=== PATIENT | male | born 1960 | race Caucasian/White ===

== ENCOUNTER 2017-08-21 21:08 | Emergency (ER) | payer OTHER ==
[2017-08-21 21:38] VITALS: BP 155/94
[2017-08-21] MEDS ORDERED: predniSONE TAB* 20 MG PO ONE (22:06)
[2017-08-21] MEDS ORDERED: Cyclobenzaprine TAB* 10 MG PO ONE (22:06)
--- NOTE | 2017-08-21 22:06 | UC ---
Neck Pain HPI - HPI Summary HPI Summary: Pt presents with SO. pt with progressive paresthesia and discomfort left arm from lateral neck to shoulder and ring finger and pinkie. no trauma. Pt denies weakness. Pt has seen his PCP and was were referred to [facility] - concern for cervical nerve radiculopathy. Pt states has been waiting for insurance approval which came today and was anticipating call today to schedule f/u. Pt states tonight paresthesia got worse. Slight discomfort with lateral rotation of neck. Pt difficult to find comfortable position. no change is pattern, just intensity. Pt took Motrin 1200mg without improvement so came to UC> Pt's medications reviewed this visit - History of Current Complaint Chief Complaint: UCGeneralIllness Stated Complaint: LFT WRIST/ELBOW/SHOULDER PAIN Time Seen by Provider: 08/21/17 21:36 Hx Obtained From: Patient, Family/Information Technology Administrator Onset/Duration Of Injury/Symptoms: Hours Timing: Constant Onset/Duration: Gradual Onset, Lasting Weeks Severity: Moderate Pain Intensity: 7 Pain Scale Used: 0-10 Numeric Location: Discrete At: - lef UE, Radiates To: - left thumb, index Aggravating Factors: Movement - c spine movement - Allergies/Home Medications Allergies/Adverse Reactions: Allergies Allergy/AdvReac Type Severity Reaction Status Date / Time hydrochlorothiazide Allergy Rash Verified 08/21/17 21:28 Home Medications: Home Medications Amlodipine Besylate [Norvasc 2.5 mg tab] 1 tab DAILY 08/21/17 [History Confirmed 08/21/17] Atorvastatin* [Lipitor 20 MG*] 20 mg QPM 08/21/17 [History Confirmed 08/21/17] Fluticasone-Salmeterol 250-50* [Advair Diskus 250-50*] 1 puff BID 08/21/17 [ History Confirmed 08/21/17] Losartan Potassium 100 mg DAILY 08/21/17 [History Confirmed 08/21/17] Tiotropium CAP.INH* [Spiriva CAP.INH*] 1 inh DAILY 08/21/17 [History Confirmed 08/21/17] celeCOXIB CAP* [CeleBREX CAP*] 200 mg PO EVERY OTHER DAY 08/21/17 [History Confirmed 08/21/17] PMH/Surg Hx/FS Hx/Imm Hx Previously Healthy: Yes - Surgical History Surgical History: Yes Surgery Procedure, Year, and Place: Umbilical hernia. Tonsils lumbar back injections - Family History Known Family History: Positive: Hypertension - Social History Occupation: Unemployed Lives: With Family Alcohol Use: Weekly Substance Use Type: None Smoking Status (MU): Never Smoked Tobacco Review Of Systems Constitutional: Positive: Negative Skin: Positive: Negative Neurological: Positive: Paresthesia All Other Systems Reviewed And Are Negative: Yes Physical Exam Triage Information Reviewed: Yes Appearance: Well-Appearing, Well-Nourished, Pain Distress - pt intermittently shaking arm for comfort Vital Signs: Initial Vital Signs Temp 98 F 08/21/17 21:31 Pulse 75 08/21/17 21:31 Resp 18 08/21/17 21:31 BP 155/94 08/21/17 21:31 Pulse Ox 97 08/21/17 21:31 Eye Exam: Normal Eyes: Positive: Conjunctiva Clear ENT Exam: Normal ENT: Positive: Normal ENT inspection, Hearing grossly normal, TMs normal Dental Exam: Normal Neck exam: Normal Neck: Positive: Supple, Nontender, No Lymphadenopathy Respiratory Exam: Normal Respiratory: Positive: Lungs clear, Normal breath sounds, No respiratory distress, No accessory muscle use Cardiovascular Exam: Normal Cardiovascular: Positive: RRR, No Murmur, Other: - 2+ radial, , ulnar CBT < 2 sec Musculoskeletal Exam: Normal Musculoskeletal: Positive: Strength Intact, Other: - 5/5 extension, abudcition, adduction left shoulder 5/5 flex/ext elbow, pronate/supinate 5/5 flex/ext wrist no pain c/t/l/s + full AROM c spine with increased paresthesi lateral rotation right Neurological Exam: Normal Neurological: Positive: Other: - + thumb up, a ok, finger spread, finger cross 5/5 grasp 2+ bicep without clonus Psychological Exam: Normal Skin Exam: Normal Skin: Negative: rashes Neck Pain Course/Dx - Course Course Of Treatment: Pt with left sided paresthesiea lateral neck to anterior shoulder and medial aspect of arm to fingers. . Pt with full strength on exam. Pt agree with likely cervical nerve radiculopathy. recommend sling. heat with stretch. motrin/apap - d/w pt at length appropriate doses. flexeril. pred - expressed precaution with NSAID. f/u with pcp and [facility] in am. no narcotic. pt comfortable and in agreement with plan - Differential Dx/Diagnosis Provider Diagnoses: upper extremity radiculopathy Discharge - Discharge Plan Condition: Stable Disposition: HOME Prescriptions: Cyclobenzaprine TAB* [Flexeril 10 MG TAB*] 10 mg PO TID PRN #15 tab PRN Reason: Spasms predniSONE TAB* [Deltasone TAB*] 20 mg PO DAILY #13 tab Referrals: Erin Laura MD [Primary Care Provider] - Additional Instructions: - Call [facility] tomorrow as well as Dr. Marcum to secure a follow-up appointment - wear sling for comfort and support - take prednisone daily as prescribed until gone - apply heat to your shoulder - then slow, gentle stretching - Take flexeril as prescribed - do NOT drive, operate machinery, or drink alcohol while taking this medication -Okay to alternate ibuprofen (Advil, Motrin) and Tylenol every 3 hours for pain. Take with food. Do NOT take for more than 4-5 days - If your pain is uncontrolled, it is recommended you go to the emergency department for further management
== END 2017-08-21 22:17 | disposition home or self-care (01) ==
LOC: UCCORT 21:08
DX: M54.10 Radiculopathy, site unspecified (principal); Z88.8 Allergy status to other drugs, medicaments and biological substances
CPT/HCPCS: 99203; A9270-GY; G0463; J7512

== ENCOUNTER 2017-08-28 09:06 | Emergency (ER) | payer OTHER ==
[2017-08-28 09:35] VITALS: BP 159/98
--- NOTE | 2017-08-28 09:37 | UC ---
Skin Complaint HPI - HPI Summary HPI Summary: pt is c/o skin infection to neck on left in back and left nare for past 1-2 days. 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 no associated hx mrsa or dm and no fever. - History of Current Complaint Time Seen by Provider: 08/28/17 09:28 Stated Complaint: SKIN COMPLAINT BACK OF NECK Hx Obtained From: Patient Onset/Duration: Gradual Onset Skin Exposure Onset/Duration: Days Ago - 2 Timing: Constant Onset Severity: Moderate Current Severity: Moderate Aggravating Factor(s): Nothing Alleviating Factor(s): Nothing Associated Signs & Symptoms: Positive: Drainage. Negative: Nausea, Diaphoresis , Weakness - Allergy/Home Medications Allergies/Adverse Reactions: Allergies Allergy/AdvReac Type Severity Reaction Status Date / Time hydrochlorothiazide Allergy Rash Verified 08/21/17 21:28 Home Medications: Home Medications Hydrocodone/Acetaminophen [Hydrocodone-Acetamin 10-325 mg] 08/28/17 [History] Review of Systems Constitutional: Negative Skin: Rash Eyes: Negative ENT: Negative Respiratory: Negative Cardiovascular: Negative Gastrointestinal: Negative Genitourinary: Negative Motor: Negative Neurovascular: Negative Musculoskeletal: Negative Neurological: Negative Psychological: Negative Is Patient Immunocompromised?: No All Other Systems Reviewed And Are Negative: Yes PMH/Surg Hx/FS Hx/Imm Hx Endocrine History: Dyslipidemia Cardiovascular History: Hypertension - Surgical History Surgical History: Yes Surgery Procedure, Year, and Place: Umbilical hernia. Tonsils lumbar back injections - Family History Known Family History: Positive: Hypertension - Social History Occupation: Retired Lives: With Family Alcohol Use: Weekly Substance Use Type: None Smoking Status (MU): Never Smoked Tobacco Physical Exam Triage Information Reviewed: Yes Appearance: Well-Appearing Vital Signs Reviewed: Yes Eyes: Positive: Conjunctiva Clear ENT: Positive: Pharynx normal, TMs normal, Other - area of erythema and tenderness just inside L anterior nare that is tender and swollen. Negative: Nasal congestion, Nasal drainage Neck: Positive: Supple, Nontender, No Lymphadenopathy, Other: - 1.5 cm area of induration, erythema and tenderness left posterior neck with central excoriation. Respiratory: Positive: Lungs clear, Normal breath sounds Cardiovascular: Positive: RRR, No Murmur, Pulses Normal Abdomen Description: Positive: Nontender, No Organomegaly, Soft Bowel Sounds: Positive: Present Musculoskeletal: Positive: ROM Intact Neurological: Positive: Alert Psychological: Positive: Age Appropriate Behavior Skin Exam: Normal Course/Dx - Course Course Of Treatment: PROCEDURE: LEFT NARE PREP BETADINE. LOCAL WITH .3ML OF 1% LIDOCAINE. ASPIRATED WITH 18G-NOTHING OBTAINED. LEFT POSTERIOR NECK PREP BETADINE. LOCAL WITH 1% LIDOCAINE .5ML THEN ASPIRATED SCANT PUSS, TIP 311 LELIA USED TO MAKE SUPERFICIAL STAB INCISION AND SCANT PUSS OBTAINED. BLUNT EXPLORATION WITH FORCEP AND SITE SUPERFICIAL. IRRIGATED STERILE WATER THEN COVERED WITH BACITRACIN AND GAUZE. STERILE TECHNIQUE USED ON BOTH SITES AND PT TOLERATED WELL. WILL TX NARE WITH BACTROBAN AND ADD PO KEFLEX TO BENEFIT BOTH SITES. PT HAS HX HTN, STATES TX BUT HAS WHITE COAT HTN WELL PLUS PAIN NOW WHICH IS CAUSING HIS BP TO GO UP. REPEAT BP IS IMPROVED WITH NO TX. WILL BE RECHECKED ON F/U VISIT. - Diagnoses Provider Diagnoses: SKIN INFECTION LEFT ANTERIOR NARE. I&D ABSCESS LEFT POSTERIOR NECK. Discharge - Discharge Plan Condition: Stable Disposition: HOME Prescriptions: Cephalexin CAP* [Keflex CAP*] 500 mg PO TID 7 Days #21 cap Mupirocin 2% OINT* [Bactroban 2 % Oint*] 1 applic TOPICAL TID 7 Days #1 tube Patient Education Materials: Incision and Drainage (ED) Referrals: [facility] [Primary Care Provider] - 3 Days
[2017-08-28] MEDS ORDERED: Lidocaine 1% INJ* 10 MG/ML 30 ML SDV INJ ONE (09:41)
[2017-08-28] MEDS ORDERED: Lidocaine 1%* 5 ML VIAL ONE (09:47)
== END 2017-08-28 10:19 | disposition home or self-care (01) ==
LOC: UCCORT 09:06
DX: J34.0 Abscess, furuncle and carbuncle of nose (principal); L02.11 Cutaneous abscess of neck; E78.5 Hyperlipidemia, unspecified; I10 Essential (primary) hypertension; Z88.8 Allergy status to other drugs, medicaments and biological substances
CPT/HCPCS: 10060; 99212; G0463